=== PATIENT | female | born 1980 | race Caucasian/White ===

== ENCOUNTER 2025-04-08 14:53 | Emergency (ER) | payer BC, SELFPAY ==
[2025-04-08 14:55] VITALS: BP 134/73
[2025-04-08 15:16] LABS: % Eosinophils 5.5 % (0-6); % Immature Granulocytes 0.2 % (0-0.5); % Lymphocytes 30.2 % (20.5-51.1); % Neutrophils 52.1 % (42.2-75.2); Absolute Eosinophils 0.2 10^3/uL (0-0.7); Absolute Lymphocytes 1.2 10^3/uL (1.2-3.4); Absolute Monocytes 0.4 10^3/uL (0.1-0.6); Absolute Neutrophils 2.1 10^3/uL (1.4-6.5); Hematocrit 43.3 % (37.0-47.0); Hemoglobin 14.6 g/dL (12.0-16.0); Mean Corp Hgb Conc. 33.7 g/dL (33.0-37.0); Mean Corpuscular Hgb 30.7 pg (27.0-31.0); Mean Platelet Volume 9.8 fL (7.4-10.4); Nucleated Red Blood Cells % 0 %; Platelet Count 239 10^3/uL (130-400); Red Blood Cell Count 4.76 10^6/uL (4.20-5.40); Red Cell Dist. Width 12.9 % (11.5-14.5)
[2025-04-08 15:32] LABS: ALT (SGPT) 26 U/L (0-35); AST (SGOT) 25 U/L (14-36); Alkaline Phosphatase 77 U/L (38-126); Blood Urea Nitrogen 11 mg/dl (7-17); Calcium 9.2 mg/dl (8.4-10.2); Carbon Dioxide 27 mmol/L (22-30); Chloride 110 mmol/L (98-107); Glucose 100 mg/dl (70-99); Lipase 76 U/L (23-300); Sodium 141 mmol/L (135-145); Total Bilirubin 0.5 mg/dl (0.2-1.3); Total Protein 6.7 g/dl (6.3-8.2); eGFR > 60.00
[2025-04-08 15:33] LABS: HCG, Serum Qualitative Screen Negative
[2025-04-08 16:04] LABS: Urine Albumin 2+ (Neg - Trace); Urine Bilirubin Negative (Negative); Urine Character Slightly Cloudy (Clear); Urine Color Yellow; Urine Glucose Negative (Negative); Urine Ketone Negative (Negative); Urine Leukocyte 3+ (Negative); Urine Nitrite Negative (Negative); Urine Occult Blood 3+ (Negative); Urine Urobilinogen Negative (Neg - 1+)
[2025-04-08 16:16] LABS: Urine Squamous Cell >30 /LPF (Few)
[2025-04-08 16:18] LABS: Urine Bacteria Many (Negative)
[2025-04-08 19:06] VITALS: BP 151/81
--- NOTE | 2025-04-08 19:27 | ED.GENMED ---
History of Present Illness
General
Chief Complaint: Abdominal Pain
Source: patient
Exam Limitations: none
Time Seen by Provider: 04/08/25 18:45
Nursing documentation reviewed up to this point in time: agreed with
History of Present Illness
History of Present Illness:
45-year-old female with a history of chronic back pain, L4-L5 disc herniation and sciatica, not on opiates presents for lower back pain starting 2 days ago which she thought was just from bending over while gardening but over the last 2 days she
started having pain that wraps around into her pelvis and feels like a stabbing sensation on both sides. She has got suprapubic pain but no urinary discomfort like dysuria or frequency or urgency. Patient does not have a history of kidney stones
or kidney infections but she does have a history of an ovarian cyst that was removed.
She has tried Tylenol and ibuprofen without relief. Pain is 8 out of 10. She feels better if she is crunched up in a ball.
She has not had a fever or chills, leg weakness or numbness, incontinence
Past History
Past History
ED Past Medical History: Other (Chronic back pain)
ED Past Surgical History: Other (Breast augmentation, tummy tuck, abdominal hernia repair)
Social History
Tobacco: Non-smoker
Review of Systems
Review of Systems
Allergies reviewed?: Yes
All Other Systems: Not applicable
Phy Exam
Physical Exam
Physical Exam:
GENERAL: Alert , in no apparent distress
EYE: pupils equal and reactive
NECK: Supple
ENT: o/p clr, mmm.
CARDIAC: Regular rate and rhythm .
LUNGS: Clear breath sounds bilaterally, no acute respiratory distress, no wheezes/rales/rhonchi
ABDOMEN: Soft, mild right lower quadrant tenderness, mild flank tenderness, no r/g, no cvat, normal bowel sounds moderate suprapubic tenderness,
: normal extenreal inspection
no bleeding, no discharge
mild R ovarian tendernsss
no CMT
NEUROLOGICAL: Alert and oriented, no focal neuro deficits
SKIN: Warm and dry, skin intact.
Back: No no midline tenderness, able to flex, negative straight leg raise
MUSCULOSKELETAL: No edema, well perfused. neg babs's sign
PSYCH: Normal and appropriate interaction.
Course
Orders/Labs/Results
Orders:
Orders
04/08/25 15:00
Test Result ONCE
04/08/25 15:06
Complete Blood Count/With Diff Urgent
Comprehensive Metabolic Panel Urgent
HCG, Serum Qualitative Screen Urgent
Lipase Urgent
Urinalysis Reflex To Culture Urgent
Date Specimen was Collected: 04/08/25
Time Specimen was Collected: 15:00
Urine Microscopic Reflex Cult Urgent
Urine Culture Urgent
TIFFANY Source: U
Specimen Description:
Date Specimen was Collected: 04/08/25
Time Specimen was Collected: 15:00
04/08/25 19:26
CT Abd/Pel (IV only)-DH only Urgent
Comment:
Reason For Exam: back pain, uti, eval for pyelo/kidney stone
0.9% Sodium Chloride 1000 ml [Nss] 1,000 ml IV BOLUS
Ketorolac [Toradol] 30 mg IV NOW STA
04/08/25 20:32
HYDROmorphone [Dilaudid] 1 mg IV NOW STA
04/08/25 21:56
CefTRIAXone [Rocephin] 2,000 mg IV NOW STA
HYDROmorphone [Dilaudid] 0.5 mg IV NOW STA
Lidocaine [Lidocaine 4% Patch] 1 patch TOPICAL NOW STA
Apply Lidocaine patch(s) to:: back
US Pelvis W Transvag Combined Urgent
Comment:
Reason For Exam: pelvic pain, h/o cyst; r/o trosion; pt full
04/08/25 22:41
Sterile Water [Sterile Water For Injection] 20 ml .ROUTE .STK-MED
Abnormal Lab Results
04/08/25
15:06
WBC 4.0 L 10^3/uL
(4.8-10.8)
Monocytes % 11.0 H %
(1.7-9.3)
Chloride 110 H mmol/L
(98-107)
Glucose 100 H mg/dl
(70-99)
Ur Occult Blood Reflex 3+ A
(Negative)
Leukocyte Esterase Rfl 3+ A
(Negative)
Urine RBC 3-6 A /HPF
(0-2)
Urine WBC (Reflex) 11-15 A /HPF
(0-5)
Urine Bacteria (Reflex) Many A
(Negative)
Urine Albumin (Reflex) 2+ A
(Neg - Trace)
04/08/25 15:06
04/08/25 15:06
Vital Signs
Initial and Last Documented VS:
Initial Vital Signs
Temp Pulse Resp BP Pulse Ox
36.9 C 76 16 134/73 99
04/08/25 14:55 04/08/25 14:55 04/08/25 14:55 04/08/25 14:55 04/08/25 14:55
Last Documented Vital Signs
Temp Pulse Resp BP Pulse Ox
36.6 C 62 14 127/73 98
04/08/25 19:06 04/08/25 23:42 04/08/25 23:42 04/08/25 23:42 04/08/25 23:42
MDM/Problems Addressed
Differential Diagnosis Includes:
ovarian cyst, kidney stone, bladder infection, constipation, msk back pain
MDM/Problems Addressed:
45 y/o F
h/o chronic back pain no on opiates
here with lower back pain in her usual location, L4/L5 nonrdiating
started af ew daysa go after guardening but it has gotten more intesne like stabbing pain in her back as well as feeling supapubic pain and pain wrapping around from her back to her lower pelvis
ti reminds her of when she had ovarian cyst
pt has worse pain with changing positions of her back
feels better with her knees flexed and curled up
she has not had new sexual partner, bleeding, fever, dsicharge, dysuria
on exam looks uncomfortable
tender spurapubic
not tender in lumbar spine
neg straight leg raise normal NV exam
ua looks maybe contaminated but also tender suprapubically, cuold be cystitisi, given abx
xher CT scan showed no kidney stone, no cause for pain, but some physiologic free fluid
reassessed after toraodl and pain meds and still having significant pain
pelvic exam mild R ovarian tenderness, thus US --> which was neg
feels better afte r2nd dose pain meds
i believe pt has msk back pain but also may have cystitis, will treat with cefdinir
pain meds
d/c home
*Critical Care Note
Total Time (30-74mins, 75-104mins- exclusive of procedures): Not Applicable
ED Attending Note
-
Portions of this chart may have been created with voice recognition software.� Occasional wrong word or��sound alike� substitutions may have occurred due to the inherent limitations of voice recognition software.
Discharge Plan
Departure
Patient Disposition: Home (Routine Discharge)
Date of Disposition: 04/08/25
Time of Disposition: 23:27
Patient with high blood pressure during this ER visit?: No
Condition: Fair
Covid-19: Not Applicable
Discharge Problem:
Back pain, UTI (urinary tract infection)
Instructions: Urinary tract infection in adults - ED discharge instructions, Low back pain - ED discharge instructions
Prescriptions:
New
cefdinir 300 mg capsule
300 mg PO BID Qty: 14 0RF
hydrocodone-acetaminophen 5-325 mg tablet
1 tab PO Q8H PRN (Reason: Pain) Qty: 10 0RF
No Action
isotretinoin [Accutane] 30 MG capsule
30 mg PO BID
Biotin
1 tab PO DAILY
Metamucil
1 cap PO DAILY
Multivitamin
1 tab PO DAILY
Zyrtec
1 tab PO DAILY
Referrals:
Angelika Valverde CRNP [Family Provider] - Follow up in 2-3 days
Activity Restrictions/Additional Instructions:
Were not entirely sure the cause of your lower back and abdominal pain but you do have a bladder infection which could be responsible for some of the pain. You had no signs of a kidney stone and no signs of a kidney infection. It is probably a
flareup of your chronic back pain as well as the bladder infection. There was no sign of any obvious ruptured cyst. Take cefdinir twice a day for 7 days to treat your urine infection. As for pain take Motrin every 8 hours, you can apply topical
lidocaine patches as needed and then for additional severe pain you could use Vicodin every 6 hours. You should use a stool softener when you are on this medication because it can cause constipation. Return for leg weakness, leg numbness,
inability to walk, fever, vomiting, severe pain or any concern
Interventions
Interventions:
*Risk Screen - Suicide Last Done: 04/08/25 14:55
*General Assessment Last Done: 04/08/25 14:55
*Neglect/Abuse Screening Last Done: 04/08/25 14:55
*ED- Fall Risk Assessment Last Done: 04/08/25 23:40
*ED COVID-19 Vaccine History Last Done: 04/08/25 14:55
*Nursing Disposition Last Done: 04/08/25 23:42
[facility] Assessment Last Done: 04/08/25 19:21
Discharge Date and Time
Discharge Date/Time: 04/08/25 23:43
Print Language: FRENCH
[2025-04-08] MEDS: TORADOL 30 MG IV (19:49)
[2025-04-08] MEDS: NSS 1000 IV (19:49)
[2025-04-08] MEDS: DILAUDID 1 MG IV (20:37)
[2025-04-08 21:11] VITALS: BP 125/70
[2025-04-08] MEDS: DILAUDID 0.5 MG IV (22:43)
[2025-04-08] MEDS: LIDOCAINE 4% PATCH 1 PATCH TOPICAL (22:44)
[2025-04-08] MEDS: ROCEPHIN 2000 MG IV (22:44)
[2025-04-08 23:31] VITALS: BP 127/73
[2025-04-08 23:42] VITALS: BP 127/73
== END 2025-04-08 23:43 | disposition home or self-care (01) ==
LOC: EMR 14:53
PROVIDERS: Student in an Organized Health Care Education/Training Program; EMERGENCY PHYSICIAN Emergency Medicine; FAMILY PHYSICIAN Nurse Practitioner Gerontology
DX: N39.0 Urinary tract infection, site not specified (principal); M54.50 Low back pain, unspecified
CPT/HCPCS: 99285; 96374; 96375 ×2; 96361; 96376; 74177; 76830; 76856; 80053; 81003; 81015; 83690; 84703; 85025; 87086; Q9967

== ENCOUNTER 2025-09-05 06:31 | Day surgery (SDC) | payer BC, SELFPAY | END 2025-09-05 15:02 | disposition home or self-care (01) | LOC: GI 06:31 | PROVIDERS: ATTENDING PHYSICIAN Internal Medicine | DX: R13.10 Dysphagia, unspecified (principal); K22.89 Other specified disease of esophagus; K20.0 Eosinophilic esophagitis | CPT/HCPCS: 43249; 43239; 88305 ==